=== PATIENT | male | born 1955 | race Caucasian/White ===

== ENCOUNTER → 2019-07-20 | Outpatient (CLI) | payer BC ==
[~2019-07-20] MED LIST: GADOBENATE DIMEGLUMINE 1 ML IV ONE; SODIUM CHLORIDE 0.9% 100 ML ONE
[2019-07-20 13:10] LABS: BLOOD UREA NITROGEN 15 mg/dL (7-26); BUN/CREATININE RATIO 19 (6-25); EST GLOMERULAR FILTRATION RATE > 60 ML/MIN (60-)
--- NOTE | 2019-07-20 13:40 | Diagnostic Imaging Report ---
EXAM: CT Abdomen and Pelvis WITHOUT contrast INDICATION: ^[id number] ^[id number] ^CALCULUS OF KIDNEY COMPARISON: None. TECHNIQUE: Abdomen and pelvis were scanned utilizing a multidetector helical scanner from the lung base to the pubic symphysis without administration of IV contrast. Absence of intravenous contrast decreases sensitivity for detection of focal lesions and vascular pathology. Coronal and sagittal reformations were obtained. Routine protocol was performed. IV CONTRAST: None ORAL CONTRAST: None COMPLICATIONS: None RADIATION DOSE: Total DLP: 919 mGy*cm Estimated effective dose: (DLP x 0.015 x size factor) mSv CTDIvol has been reviewed. It is below the limits set by the Radiation Protocol Committee (RPC). Dose modulation, iterative reconstruction, and/or weight based adjustment of the mA/kV was utilized to reduce the radiation dose to as low as reasonably achievable. FINDINGS: LINES and TUBES: None. LOWER THORAX: Unremarkable HEPATOBILIARY: No focal hepatic lesions. No biliary ductal dilation. GALLBLADDER: No radio-opaque stones or sludge. No wall thickening. SPLEEN: Single calcified granuloma. No splenomegaly. PANCREAS: No focal masses or ductal dilatation. ADRENALS: No adrenal nodules KIDNEYS/URETERS: No hydronephrosis. Bilateral renal cysts, 4.5 cm in the right kidney and 4.1 cm in the left kidney. Nonobstructing 6 mm left renal pelvis stone. No ureteral stones. GI TRACT: No abnormal distention, wall thickening, or evidence of bowel obstruction. Appendix is normal. PELVIC ORGANS/BLADDER: Unremarkable. LYMPH NODES: No lymphadenopathy. VESSELS: There is mild atherosclerotic disease in the aorta and major arterial branches. PERITONEUM / RETROPERITONEUM: No free air or fluid. BONES: No acute osseous abnormality. SOFT TISSUES: Unremarkable. IMPRESSION: Single 6 mm nonobstructing stone within the left renal pelvis. No acute abnormality or evidence of obstructive uropathy. Signed by: Ben Cespedes MD on 07/20/2019 1:37 PM
--- NOTE | 2019-07-20 15:29 | Diagnostic Imaging Report ---
MRI BRAIN WOW HISTORY: Headache, pituitary disorder COMPARISON: None. TECHNIQUE: Multiplanar, multisequence MRI of the brain (including diffusion-weighted imaging) and pituitary gland was performed before and after the administration of intravenous contrast. Dynamic coronal T1 weighted images through the sella were obtained. Motion artifacts obscure some details. DISCUSSION: The sella is preserved. The pituitary gland is normal in size and morphology. The posterior pituitary T1 bright spot is preserved. The pituitary stalk is not deviated. The optic chiasm is preserved. The cavernous sinuses are normal in size and enhance symmetrically. Meckel's caves are clear. The cavernous internal carotid artery flow voids are preserved. Additional findings: Scattered T2/FLAIR hyperintense foci throughout the supratentorial white matter and grant are likely chronic microvascular ischemic changes. There is mild generalized cerebral volume loss. Mild, irregular dural enhancement along the falx does not exert significant mass effect. Otherwise, there are no acute intracranial abnormalities. Nonspecific T2/FLAIR hyperintense left mastoid effusion. IMPRESSION: 1. Nonspecific mild irregular dural enhancement along the falx without significant mass effect. 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 2. Otherwise, no acute intracranial abnormalities. 3. No sellar/suprasellar abnormalities. 4. Mild to moderate supratentorial/pontine chronic microvascular ischemic change. Mild generalized cerebral volume loss. Signed by: Dr. Rodolfo Baxter M.D. on 07/20/2019 3:26 PM
== END ==
LOC: CT 12:17
PROVIDERS: ATTEND Urology
DX: E23.7 Disorder of pituitary gland, unspecified (principal); N20.0 Calculus of kidney
CPT/HCPCS: 36415; 70553; 74176; 82565; 84520; A9577; J7050

== ENCOUNTER → 2021-04-17 | Outpatient (CLI) | payer BC | LOC: CT 11:29 | PROVIDERS: ATTEND Urology | DX: N20.0 Calculus of kidney (principal) | CPT/HCPCS: 74176 ==